=== PATIENT | female | born 1980 | race Caucasian/White ===

== ENCOUNTER 2017-03-23 19:19 | Emergency (ER) | payer MEDICAID ==
[~2017-03-23] VITALS: Ht 160 cm; Wt 58.0 kg
[2017-03-23 19:30] VITALS: Ht 160 cm; Wt 58.0 kg
[2017-03-23] MEDS ORDERED: IBUP800T25 PO (20:18)
[2017-03-23] MEDS ORDERED: CYCL-319 PO (20:18)
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
== END 2017-03-23 20:48 | disposition home or self-care (01) ==
LOC: FTE 19:19
DX: M54.9 Dorsalgia, unspecified (principal); M25.511 Pain in right shoulder; M25.512 Pain in left shoulder; M25.551 Pain in right hip; M25.552 Pain in left hip
CPT/HCPCS: 99283